=== PATIENT | female | born 1970 | race Caucasian/White ===

== ENCOUNTER 2022-07-06 05:47 | Day surgery (SDC) | payer OTHER ==
[2022-07-05 10:40] VITALS: BMI 31.9
[2022-07-06] MEDS ORDERED: Fentanyl 100 MCG/2 ML VIAL ONE (07:35)
[2022-07-06] MEDS ORDERED: PROPOFOL 40 ML ONE (07:35)
[2022-07-06] MEDS ORDERED: Lidocaine 1% PF 5 ML VIAL ONE (07:38)
[2022-07-06] MEDS ORDERED: PROPOFOL 20 ML ONE ×2 (08:00→08:15)
== END 2022-07-06 08:35 | disposition home or self-care (01) ==
LOC: CSHSDC 05:47
PROVIDERS: ATTEND Internal Medicine Gastroenterology
PROC: 0DJD8ZZ Inspection of Lower Intestinal Tract, Via Natural or Artificial Opening Endoscopic (ICD-10-PCS; principal; 2022-07-06)
DX: Z12.11 Encounter for screening for malignant neoplasm of colon (principal); K64.9 Unspecified hemorrhoids; Z80.0 Family history of malignant neoplasm of digestive organs; I10 Essential (primary) hypertension; J44.9 Chronic obstructive pulmonary disease, unspecified; E03.9 Hypothyroidism, unspecified; E78.5 Hyperlipidemia, unspecified; Z79.82 Long term (current) use of aspirin; Z79.899 Other long term (current) drug therapy
CPT/HCPCS: J2704; J3010